=== PATIENT | male | born 1965 | race Caucasian/White ===

== ENCOUNTER 2020-06-27 14:34 | Emergency (ER) | payer OTHER ==
[2020-06-27 14:53] VITALS: TEMP 97.8
--- NOTE | 2020-06-27 15:25 | RAD ---
XR TIBIA FIBULA 2 VIEWS HISTORY: 55 years Male kicked by cow COMPARISON: None. TECHNIQUE: 3 view radiograph of the right tibia and fibula. IMPRESSION: No acute displaced fracture. No dislocation. No cortical irregularities. No soft tissue defect or radiopaque foreign body. Electronically signed by: Kash Valdez MD 06/27/2020 3:24 PM [facility]
--- NOTE | 2020-06-27 15:27 | RAD ---
EXAM DESCRIPTION: Chest,2 Views CLINICAL HISTORY: 55 years Male, cp COMPARISON: None. TECHNIQUE: 2 view radiograph of the chest. IMPRESSION: Normal size cardiac silhouette. No lobar or masslike consolidation. No pleural effusion. Although, right costophrenic angle on frontal view not included within the image margins. No pneumothorax. Thoracic spondylosis. No acute displaced fracture, although lateral right lower ribs are not included within the image margins on frontal view. Electronically signed by: Kash Valdez MD 06/27/2020 3:25 PM [employer]
--- NOTE | 2020-06-27 15:44 | ED.PDOC ---
History of Present Illness - General Chief Complaint: Lower Extremity Injury Stated Complaint: RLE pain Time Seen by Provider: 06/27/20 14:36 Source: patient, RN notes reviewed, Vital Signs reviewed Exam Limitations: no limitations - History of Present Illness Initial Comments: kicked by cow in [place] 4 days ago, complaining of leg pain, tingling. Was seen at urgent care and concern about possible LE blood clot. no recent travel or immboilization. no hx cancer. no hx of blood clot. Pain is anterior around area he was kicked. denies any chest pain or shortness of breath. symptoms come and go. currently no symptoms. denies back pain or issues wiht bowel/bladder. no back injuries. no weakness. Allergies/Adverse Reactions: Allergies NO KNOWN ALLERGY Allergy (Verified 06/27/20 14:50) Home Medications: Ambulatory Orders Gabapentin 100 mg PO TID PRN #21 cap 06/27/20 Review of Systems - Review of Systems Constitutional: Denies: chills, fever, malaise EENTM: Denies: blurred vision, ear discharge, throat pain Respiratory: Denies: cough, short of breath, wheezing Cardiology: Denies: chest pain, palpitations, syncope Gastrointestinal/Abdominal: Denies: abdominal pain, diarrhea, nausea, vomiting Genitourinary: Denies: discharge, frequency, hematuria Musculoskeletal: States: muscle pain. Denies: back pain, joint pain, joint swelling, muscle stiffness, neck pain Skin: States: rash - bruise. Denies: change in color Neurological: States: tingling. Denies: headache, numbness, paresthesia, tremors Endocrine: Denies: unexplained weight gain, unexplained weight loss Hematologic/Lymphatic: Denies: blood clots, easy bleeding, easy bruising Past Medical History (General) - Patient Medical History Hx Seizures: No Hx Stroke: No Hx Dementia: No Hx Asthma: No Hx Cardiac Disorders: Yes - irregular heart beat Hx Congestive Heart Failure: No Hx Pacemaker: No Hx Hypertension: No Hx Thyroid Disease: No Hx Diabetes: No Hx Gastroesophageal Reflux: No Hx Renal Disease: No Hx Cancer: No Hx of HIV: No Hx Hepatitis B: No Hx Hepatitis C: No Hx Other PMH: Yes - hx of murmur - Activities of Daily Living Hospice Agency (if applicable):: None - Female History Patient is a Female of Child Bearing Age (10 -59 yrs old): No Family Medical History - Family History Mother Family History: Unknown Physical Exam - Physical Exam General Appearance: Alert, Comfortable, No apparent distress, Well Developed, Well Groomed, Well Hydrated, Well Nourished Eyes, Ears, Nose, Throat: PERRL/EOMI, normal ENT inspection Neck: non-tender, full range of motion, supple, normal inspection Cardiovascular/Respiratory: regular rate, rhythm, no M/R/G, normal peripheral pulses, no JVD, normal breath sounds, no respiratory distress Gastrointestinal/Abdominal: non-tender, no organomegaly, no hernia Back: normal inspection, no CVA tenderness, no vertebral tenderness Thigh/Hip: normal inspection, non-tender, no evidence of injury, normal ROM Leg: normal ROM, other - small amount of swelling and ecchymosis anterior proximal lateral right leg. distal pulses intact. no calf tenderness, 2 point discrimination intact. Knee: normal inspection, non-tender, no evidence of injury, normal ROM Foot: normal inspection, non-tender, no evidence of injury, normal ROM DTR - Lower Extremities: 2+: Achilles, left, Achilles, right Neuro/Tendon: normal sensation, normal motor functions, normal tendon functions, responds to pain Mental Status: alert, oriented x 3 Skin: normal color, warm/dry Progress - Progress Progress: 06/27/20 17:08 partial ddx: blood clot, pinched nerve, fracture, hematoma/contusion, others considered I suspect patient has a nerve compressed from the mild swelling and ecc The data reviewed when caring for this patient included: nurse notes, prior records, etc. The history and assessments from nurses notes were reviewed and considered, and the patient's home medication list was also reviewed and considered. My assessment and the results of testing completed here in the ED were discussed with the patient/family. All questions were answered, and they express understanding of my assessment and the plan. They have been instructed to return if their symptoms worsen, and have been asked to follow up with their primary care physician to recheck today's presenting complaint. Strict return precautions given. I have reviewed medication, benefits, alternatives and side effects. Patient decided to proceed with medication. Selena Mccoy DO #[id number] 06/27/20 17:45 - EKG/XRAY/CT EKG: Sinus - NSR normal intervals. nonspeicidc st-t wave changes. no aciute ischemia, t wave inversion in lead 3 XRAY: chest - no acute pathology Xray Comments: tib/fib no fracture Departure - Departure Clinical Impression: Leg pain Qualifiers: Laterality: right Qualified Code(s): M79.604 - Pain in right leg Contusion Qualifiers: Encounter type: initial encounter Contusion area: lower leg Laterality: right Qualified Code(s): S80.11XA - Contusion of right lower leg, initial encounter ICD-10 Supporting Text: naturopathic pain Time of Disposition: 15:49 Disposition: Discharge to Home or Self Care Departure Forms: ED Discharge - Pt. Copy, Patient Portal Self Enrollment Instructions: DI for Leg Pain, Contusion (DC), Obrien Splints Diet: resume usual diet Activity: increase activity as tolerated Referrals: Kaycee Carrington NP [Primary Care Provider] - 1-5 Days Prescriptions: Gabapentin 100 mg PO TID PRN #21 cap PRN Reason: Pain Home Medications: Ambulatory Orders Gabapentin 100 mg PO TID PRN #21 cap 06/27/20
[2020-06-27 15:57] VITALS: BP 158/74; O2SAT 96
== END 2020-06-27 15:57 | disposition home or self-care (01) ==
LOC: ER 14:34
DX: S80.11XA Contusion of right lower leg, initial encounter (principal); W55.22XA Struck by cow, initial encounter; Y92.9 Unspecified place or not applicable